=== PATIENT | female | born 1995 | race Two or more races ===

== ENCOUNTER 2018-11-28 11:26 | Emergency (ER) | payer OTHER ==
[~2018-11-28] VITALS: Ht 165.1 cm; Wt 47.6 kg
[2018-11-28 11:40] VITALS: BP 134/76
[2018-11-28] MEDS ORDERED: TETANUS-DIPTH-ACEL PERTUSSIS 0.5ML SYRG IM ONE (13:00)
[2018-11-30 09:59] LABS: Hepatitis B Surface Antibody Positive
[2018-11-30 11:59] LABS: Hepatitis B Surface Antigen Negative (Negative)
== END 2018-11-28 13:39 | disposition home or self-care (01) ==
LOC: ER 11:30
DX: S61.231A Puncture wound without foreign body of left index finger without damage to nail, initial encounter (principal); Z77.21 Contact with and (suspected) exposure to potentially hazardous body fluids; W22.8XXA Striking against or struck by other objects, initial encounter; Y93.89 Activity, other specified; Y92.89 Other specified places as the place of occurrence of the external cause; Y99.8 Other external cause status
CPT/HCPCS: 36415; 86703; 86706; 86803; 87340; 90471; 90715